=== PATIENT | female | born 1985 | race African-American/Black ===

== ENCOUNTER 2017-10-05 02:28 | Emergency (ER) | payer MEDICAID, OTHER ==
[~2017-10-05] VITALS: Ht 157.5 cm; Wt 53.0 kg
[2017-10-05] MEDS ORDERED: KETOROLAC 60MG/2ML VIAL IM ONE (06:45)
[2017-10-05] MEDS ORDERED: ACETAMINOPHEN 325MG TABLET PO ONE (07:30)
[2017-10-05 08:50] VITALS: BP 129/79
== END 2017-10-05 09:08 | disposition home or self-care (01) ==
LOC: ER 02:28
DX: S62.306A Unspecified fracture of fifth metacarpal bone, right hand, initial encounter for closed fracture (principal); W22.01XA Walked into wall, initial encounter; Y93.89 Activity, other specified; Y99.8 Other external cause status; Y92.89 Other specified places as the place of occurrence of the external cause
CPT/HCPCS: 29125; 73110; 73130; 81025; 96372; 99284; J1885

== ENCOUNTER 2019-01-04 18:15 | Emergency (ER) | payer MEDICAID ==
[~2019-01-04] VITALS: Ht 157.5 cm; Wt 52.0 kg
[2019-01-04] MEDS ORDERED: HYDROCODONE/ACETAMINOPHEN 5/325MG TABLET PO ONE (19:00)
[2019-01-04] MEDS ORDERED: ONDANSETRON 4MG ODT PO ONE (19:00)
[2019-01-04] MEDS ORDERED: SILVER SULFADIAZINE 1% CREAM 50GM TOP SCH (19:00)
[2019-01-04 19:12] VITALS: BP 114/68
[2019-01-04] MEDS ORDERED: TETANUS, DIPHTHERIA, PERTUSSIS VAC/PF 0.5ML (>7YR OLD) IM ONE (19:15)
== END 2019-01-04 20:14 | disposition home or self-care (01) ==
LOC: ER 18:15
DX: T23.242A Burn of second degree of multiple left fingers (nail), including thumb, initial encounter (principal); T23.152A Burn of first degree of left palm, initial encounter; T31.0 Burns involving less than 10% of body surface; X19.XXXA Contact with other heat and hot substances, initial encounter; Y93.G3 Activity, cooking and baking; Y92.090 Kitchen in other non-institutional residence as the place of occurrence of the external cause; Z23 Encounter for immunization
CPT/HCPCS: 16020; 81025; 90471; 90715; 99284; Q0162